=== PATIENT | female | born 1960 | race Caucasian/White ===

== ENCOUNTER 2019-01-22 09:44 | Inpatient (IN) ==
[2019-01-22 11:04] LABS: Basophils % 0.2 %; Eosinophils # 0.1 K/mcL (0.0-0.6); Eosinophils % 0.7 %; Hematocrit 25.1 % (35.3-44.9); Hemoglobin 7.6 g/dL (11.5-15.4); Immature Granulocytes % 1.2 % (0-4); Lymphocytes # 0.7 K/mcL (0.6-4.6); Lymphocytes % 3.8 %; Mean Corpuscular HGB Conc 30.3 g/dL (31.6-35.5); Mean Corpuscular Hemoglobin 26.8 pg (28.0-33.3); Mean Corpuscular Volume 88.4 fL (83.0-100.0); Mean Platelet Volume 10.1 fL (9.4-12.4); Monocytes % 5.9 %; Neutrophils # 15.3 K/mcL (1.6-8.9); Platelet Count 400 K/mcL (140-400); Red Blood Count 2.84 M/mcL (3.82-4.97); Red Cell Distribution Width 14.3 % (11.5-14.5); Segmented Neutrophils % 88.2 %; White Blood Count 17.4 K/mcL (4.3-11.1)
[2019-01-22] MEDS ORDERED: cefTRIAXone 1,000 MG in Water for inj. (sterile) 10 ML IVP ONE (11:25)
[2019-01-22 11:31] LABS: Alanine Aminotransferase 76 Units/L (7-52); Albumin/Globulin Ratio 0.8 (1.1-2.2); Alkaline Phosphatase 970 Units/L (34-104); Aspartate Amino Transferase 114 Units/L (13-39); BUN/Creatinine Ratio 13 (6-26); Bilirubin,Direct 0.2 mg/dL (0.0-0.2); Bilirubin,Indirect 0.3 mg/dL (0.0-1.2); Bilirubin,Total 0.5 mg/dL (0.3-1.0); Blood Urea Nitrogen 43 mg/dL (6-20); Calcium 8.9 mg/dL (8.6-10.3); Carbon Dioxide 15 mEq/L (23-29); Chloride 107 mEq/L (98-107); Globulin 3.7 g/dL (2.4-3.5); Glucose 139 mg/dL (70-105); Lipase 162 Units/L (11-82); Osmolality,Calculated 287 (280-300); Potassium 4.3 mEq/L (3.5-5.1); Sodium 132 mEq/L (136-145); Total Protein 6.7 g/dL (6.4-8.9); Troponin I < 0.03 ng/mL (< 0.04); eGFR For African Americans 17 (> 60); eGFR For Non-African Americans 14 (> 60)
[2019-01-22] MEDS ORDERED: 0.9 % Sodium Chloride 1,000 ML IVC ONE (11:35)
[2019-01-22 11:55] LABS: Bilirubin,Urine Negative (Negative); Blood,Urine Large (Negative); Clarity,Urine Turbid (Clear); Color,Urine Yellow (Yellow); Glucose,Urine (UA) Normal (Normal); Ketones,Urine Negative (Negative); Leukocyte Esterase,Urine Large (Negative); Nitrite,Urine Negative (Negative); PH,Urine 7.5 pH Units (5.0-8.0); Protein,Urine 100 mg/dL (Neg-Trace); Specific Gravity,Urine 1.011 (1.010-1.025); Urobilinogen,Urine Normal (Normal)
[2019-01-22 11:57] LABS: Bacteria,Urine Many per hpf (None-Few); Hyaline Casts,Urine None Seen per lpf (None-Few); Squamous Epithelial Cell,Urine Many per lpf (None-Few); WBC,Urine TNTC per hpf (0-3)
[2019-01-22 12:23] LABS: RBC,Urine TNTC per hpf (0-3)
[2019-01-22 12:45] LABS: INR 1.2; Prothrombin Time 13.1 Seconds (9.4-12.1)
[2019-01-22 12:48] LABS: Activated Partial Thrombo Time 38.7 Seconds (26.0-36.0)
[2019-01-22] MEDS ORDERED: Naloxone 0.4 MG/ML INJ IVP PRN (14:36)
[2019-01-22 16:39] LABS: Basophils % 0.2 %; Eosinophils # 0.1 K/mcL (0.0-0.6); Eosinophils % 0.2 %; Hematocrit 24.3 % (35.3-44.9); Hemoglobin 7.6 g/dL (11.5-15.4); Immature Granulocytes % 1.4 % (0-4); Lymphocytes # 1.6 K/mcL (0.6-4.6); Lymphocytes % 7.4 %; Mean Corpuscular HGB Conc 31.3 g/dL (31.6-35.5); Mean Corpuscular Hemoglobin 27.3 pg (28.0-33.3); Mean Corpuscular Volume 87.4 fL (83.0-100.0); Mean Platelet Volume 10.1 fL (9.4-12.4); Monocytes # 1.4 K/mcL (0.0-1.3); Monocytes % 6.4 %; Neutrophils # 17.8 K/mcL (1.6-8.9); Platelet Count 357 K/mcL (140-400); Red Blood Count 2.78 M/mcL (3.82-4.97); Red Cell Distribution Width 14.4 % (11.5-14.5); Segmented Neutrophils % 84.4 %; White Blood Count 21.1 K/mcL (4.3-11.1)
[2019-01-22] MEDS: Ringers Solution, Lactated 1,000 ML IVC SCH (17:00)
[2019-01-22] MEDS ORDERED: D5% in Water 1,000 ML IVC PRN (18:14)
[2019-01-22] MEDS ORDERED: Dextrose Gel 15 GM/37.5 ML TUBE PO PRN ×2 (18:14)
[2019-01-22] MEDS ORDERED: *HR* Dextrose 50 % in Water (Syg) 50 ML SYRINGE IVP PRN (18:14)
[2019-01-22] MEDS: Insulin LISPRO 300 UNITS/3 ML VIAL SQ SCH (21:59)
[2019-01-22] MEDS: lamoTRIgine 100 MG TABLET PO SCH (22:12)
[2019-01-23] MEDS: Ringers Solution, Lactated 1,000 ML IVC SCH ×2 (02:00→12:07)
[2019-01-23] MEDS: Insulin LISPRO 300 UNITS/3 ML VIAL SQ SCH ×4 (07:39→21:15)
[2019-01-23] MEDS: ARIPiprazole 10 MG TABLET PO SCH (08:36)
[2019-01-23] MEDS: Cyanocobalamin (B-12) 1,000 MCG TABLET PO SCH (08:42)
[2019-01-23] MEDS: cefTRIAXone 1,000 MG in Water for inj. (sterile) 10 ML IVP SCH (08:42)
[2019-01-23 10:05] LABS: Basophils % 0.3 %; Eosinophils # 0.3 K/mcL (0.0-0.6); Eosinophils % 1.6 %; Hematocrit 23.6 % (35.3-44.9); Immature Granulocytes % 1.2 % (0-4); Lymphocytes # 1.6 K/mcL (0.6-4.6); Lymphocytes % 10.5 %; Mean Corpuscular HGB Conc 29.7 g/dL (31.6-35.5); Mean Corpuscular Volume 91.1 fL (83.0-100.0); Mean Platelet Volume 10.4 fL (9.4-12.4); Monocytes # 0.8 K/mcL (0.0-1.3); Monocytes % 5.3 %; Neutrophils # 12.4 K/mcL (1.6-8.9); Platelet Count 392 K/mcL (140-400); Red Blood Count 2.59 M/mcL (3.82-4.97); Red Cell Distribution Width 14.4 % (11.5-14.5); Segmented Neutrophils % 81.1 %; White Blood Count 15.3 K/mcL (4.3-11.1)
[2019-01-23 10:38] LABS: Calcium 8.6 mg/dL (8.6-10.3); Potassium 4.1 mEq/L (3.5-5.1)
[2019-01-23 10:38] LABS: Calcium 8.7 mg/dL (8.6-10.3); Magnesium 1.8 mg/dL (1.6-2.6); Phosphorous 4.2 mg/dL (2.7-4.5); Potassium 4.2 mEq/L (3.5-5.1)
[2019-01-23 10:42] LABS: Albumin 2.9 g/dL (3.5-5.7); Albumin/Globulin Ratio 0.8 (1.1-2.2); Bilirubin,Indirect 0.3 mg/dL (0.0-1.2); Bilirubin,Total 0.3 mg/dL (0.3-1.0); Globulin 3.5 g/dL (2.4-3.5); Magnesium 1.7 mg/dL (1.6-2.6); Phosphorous 3.9 mg/dL (2.7-4.5); Total Protein 6.4 g/dL (6.4-8.9)
[2019-01-23 10:47] LABS: Albumin 2.8 g/dL (3.5-5.7); Albumin/Globulin Ratio 0.8 (1.1-2.2); Bilirubin,Direct 0.2 mg/dL (0.0-0.2); Bilirubin,Indirect 0.1 mg/dL (0.0-1.2); Bilirubin,Total 0.3 mg/dL (0.3-1.0); Globulin 3.3 g/dL (2.4-3.5); Total Protein 6.1 g/dL (6.4-8.9)
[2019-01-23 10:59] LABS: Hepatitis B Surface Antigen Nonreactive (Nonreactive)
[2019-01-23 11:29] LABS: Hepatitis B Core IgM Nonreactive (Nonreactive)
[2019-01-23 11:30] LABS: Hepatitis C Virus Antibody Nonreactive (Nonreactive)
[2019-01-23] MEDS ORDERED: 0.9 % Sodium Chloride 250 ML ONE (11:54)
[2019-01-23 12:56] LABS: Hepatitis A Antibody IgM Nonreactive (Nonreactive)
[2019-01-23] MEDS: lamoTRIgine 100 MG TABLET PO SCH (21:23)
[2019-01-23] MEDS: Nystatin POWDER 30 GM BOTTLE TP SCH (22:00)
[2019-01-24] MEDS: Ringers Solution, Lactated 1,000 ML IVC SCH (02:59)
[2019-01-24 03:54] LABS: Bilirubin,Urine Negative (Negative); Blood,Urine Large (Negative); Clarity,Urine Turbid (Clear); Color,Urine Yellow (Yellow); Glucose,Urine (UA) Normal (Normal); Ketones,Urine Negative (Negative); Leukocyte Esterase,Urine Large (Negative); Nitrite,Urine Negative (Negative); PH,Urine 6.5 pH Units (5.0-8.0); Protein,Urine 100 mg/dL (Neg-Trace); Specific Gravity,Urine 1.009 (1.010-1.025); Urobilinogen,Urine Normal (Normal)
[2019-01-24 03:56] LABS: Hyaline Casts,Urine None Seen per lpf (None-Few); Squamous Epithelial Cell,Urine Many per lpf (None-Few); WBC,Urine TNTC per hpf (0-3)
[2019-01-24 04:15] LABS: Bacteria,Urine Present per hpf (None-Few); RBC,Urine Present per hpf (0-3)
[2019-01-24 06:17] LABS: Calcium 8.8 mg/dL (8.6-10.3); Magnesium 1.8 mg/dL (1.6-2.6); Phosphorous 3.8 mg/dL (2.7-4.5); Potassium 4.2 mEq/L (3.5-5.1)
[2019-01-24 06:32] LABS: Basophils # 0.1 K/mcL (0.0-0.2); Basophils % 0.6 %; Eosinophils # 0.3 K/mcL (0.0-0.6); Eosinophils % 2.5 %; Hematocrit 28.1 % (35.3-44.9); Hemoglobin 8.5 g/dL (11.5-15.4); Immature Granulocytes % 2.4 % (0-4); Lymphocytes # 2.7 K/mcL (0.6-4.6); Lymphocytes % 22.4 %; Mean Corpuscular HGB Conc 30.2 g/dL (31.6-35.5); Mean Corpuscular Hemoglobin 27.6 pg (28.0-33.3); Mean Corpuscular Volume 91.2 fL (83.0-100.0); Mean Platelet Volume 10.5 fL (9.4-12.4); Monocytes # 0.7 K/mcL (0.0-1.3); Monocytes % 5.6 %; Neutrophils # 7.9 K/mcL (1.6-8.9); Platelet Count 319 K/mcL (140-400); Red Blood Count 3.08 M/mcL (3.82-4.97); Red Cell Distribution Width 14.6 % (11.5-14.5); Segmented Neutrophils % 66.5 %; White Blood Count 11.8 K/mcL (4.3-11.1)
[2019-01-24] MEDS: Insulin LISPRO 300 UNITS/3 ML VIAL SQ SCH ×4 (07:41→21:36)
[2019-01-24] MEDS: ARIPiprazole 10 MG TABLET PO SCH (08:23)
[2019-01-24] MEDS: cefTRIAXone 1,000 MG in Water for inj. (sterile) 10 ML IVP SCH (08:24)
[2019-01-24] MEDS: Cyanocobalamin (B-12) 1,000 MCG TABLET PO SCH (08:24)
[2019-01-24] MEDS: Nystatin POWDER 30 GM BOTTLE TP SCH ×3 (08:25→21:37)
[2019-01-24] MEDS ORDERED: Ringers Solution, Lactated 1,000 ML IVC SCH (15:30)
[2019-01-24] MEDS: lamoTRIgine 100 MG TABLET PO SCH (21:37)
[2019-01-24] MEDS: Ondansetron 4 MG/2 ML VIAL IVP PRN (21:38)
[2019-01-25 01:22] LABS: Hematocrit 24.2 % (35.3-44.9); Hemoglobin 7.5 g/dL (11.5-15.4); Mean Corpuscular Hemoglobin 27.9 pg (28.0-33.3); Red Blood Count 2.69 M/mcL (3.82-4.97); Red Cell Distribution Width 14.6 % (11.5-14.5); White Blood Count 9.8 K/mcL (4.3-11.1)
[2019-01-25 01:23] LABS: Basophils % 0.3 %; Eosinophils # 0.2 K/mcL (0.0-0.6); Eosinophils % 2.4 %; Immature Granulocytes % 2.6 % (0-4); Lymphocytes # 1.9 K/mcL (0.6-4.6); Mean Platelet Volume 10.6 fL (9.4-12.4); Monocytes # 0.6 K/mcL (0.0-1.3); Monocytes % 6.1 %; Neutrophils # 6.8 K/mcL (1.6-8.9); Platelet Count 320 K/mcL (140-400); Segmented Neutrophils % 69.6 %
[2019-01-25 01:31] LABS: Calcium 8.2 mg/dL (8.6-10.3); Magnesium 1.6 mg/dL (1.6-2.6); Phosphorous 3.7 mg/dL (2.7-4.5); Potassium 4.2 mEq/L (3.5-5.1); Uric Acid 7.1 mg/dL (2.3-7.6)
[2019-01-25] MEDS: Insulin LISPRO 300 UNITS/3 ML VIAL SQ SCH ×4 (08:13→21:46)
[2019-01-25] MEDS ORDERED: Ringers Solution, Lactated 1,000 ML IVC SCH (08:15)
[2019-01-25] MEDS: ARIPiprazole 10 MG TABLET PO SCH (08:18)
[2019-01-25] MEDS: Cyanocobalamin (B-12) 1,000 MCG TABLET PO SCH (08:19)
[2019-01-25] MEDS: cefTRIAXone 1,000 MG in Water for inj. (sterile) 10 ML IVP SCH (08:19)
[2019-01-25] MEDS: Nystatin POWDER 30 GM BOTTLE TP SCH ×3 (08:20→20:55)
[2019-01-25] MEDS: *HR* Heparin 5,000 UNIT/ML VIAL SQ SCH (18:47)
[2019-01-25] MEDS: Ondansetron 4 MG/2 ML VIAL IVP PRN (20:55)
[2019-01-25] MEDS: lamoTRIgine 100 MG TABLET PO SCH (21:48)
[2019-01-26] MEDS: *HR* Heparin 5,000 UNIT/ML VIAL SQ SCH (05:41)
[2019-01-26 06:40] LABS: Calcium 8.6 mg/dL (8.6-10.3); Magnesium 1.8 mg/dL (1.6-2.6); Phosphorous 3.8 mg/dL (2.7-4.5); Potassium 4.1 mEq/L (3.5-5.1)
[2019-01-26 07:16] VITALS: BP 124/60
[2019-01-26] MEDS: Insulin LISPRO 300 UNITS/3 ML VIAL SQ SCH ×2 (07:51→11:46)
[2019-01-26] MEDS: ARIPiprazole 10 MG TABLET PO SCH (08:32)
[2019-01-26] MEDS: Cyanocobalamin (B-12) 1,000 MCG TABLET PO SCH (08:32)
[2019-01-26] MEDS: Nystatin POWDER 30 GM BOTTLE TP SCH (08:33)
[2019-01-26] MEDS: cefTRIAXone 1,000 MG in Water for inj. (sterile) 10 ML IVP SCH (08:33)
== END 2019-01-26 13:36 | disposition home health service (06) | DRG 720 ==
LOC: 3BNU 09:44 → EMEROOARM 09:44 → 3BNU 15:52 → SUATTDRO 01-23 09:53
PROVIDERS: ADMIT Internal Medicine; ATTEND Internal Medicine

== ENCOUNTER 2021-09-04 15:09 | Inpatient (IN) ==
[2021-09-04] MEDS ORDERED: *HR* HYDROcodone/Acet 5/325 mg TABLET PO ONE (17:40)
[2021-09-04 17:50] LABS: Basophils # 0.1 K/mcL (0.0-0.2); Basophils % 0.6 %; Eosinophils # 0.2 K/mcL (0.0-0.6); Eosinophils % 1.5 %; Hematocrit 36.7 % (35.3-44.9); Hemoglobin 11.8 g/dL (11.5-15.4); Immature Granulocytes % 0.6 % (0-4); Lymphocytes # 1.5 K/mcL (0.6-4.6); Mean Corpuscular HGB Conc 32.2 g/dL (31.6-35.5); Mean Corpuscular Hemoglobin 28.2 pg (28.0-33.3); Mean Corpuscular Volume 87.6 fL (83.0-100.0); Mean Platelet Volume 11.1 fL (9.4-12.4); Monocytes # 1.1 K/mcL (0.0-1.3); Monocytes % 8.6 %; Neutrophils # 9.6 K/mcL (1.6-8.9); Platelet Count 230 K/mcL (140-400); Red Blood Count 4.19 M/mcL (3.82-4.97); Red Cell Distribution Width 12.4 % (11.5-14.5); Segmented Neutrophils % 76.7 %; White Blood Count 12.5 K/mcL (4.3-11.1)
[2021-09-04 18:13] LABS: Alanine Aminotransferase 11 Units/L (7-52); Albumin 3.9 g/dL (3.5-5.7); Albumin/Globulin Ratio 1.3 (1.1-2.2); Alkaline Phosphatase 97 Units/L (34-104); Aspartate Amino Transferase 13 Units/L (13-39); BUN/Creatinine Ratio 14 (6-26); Bilirubin,Total 0.5 mg/dL (0.3-1.0); Blood Urea Nitrogen 23 mg/dL (8-23); Calcium 9.2 mg/dL (8.6-10.3); Carbon Dioxide 27 mEq/L (23-29); Chloride 100 mEq/L (98-107); Globulin 3.1 g/dL (2.4-3.5); Glucose 200 mg/dL (70-105); Lipase 25 Units/L (11-82); Osmolality,Calculated 289 (280-300); Potassium 5.1 mEq/L (3.5-5.1); Sodium 135 mEq/L (136-145); eGFR For African Americans 39 (> 60); eGFR For Non-African Americans 32 (> 60)
[2021-09-04 18:14] LABS: Troponin I < 0.03 ng/mL (< 0.04)
[2021-09-04] MEDS ORDERED: methocarbamoL 500 MG TABLET PO ONE (18:20)
[2021-09-04] MEDS ORDERED: Gadolinium Contrast Agent (WT Based) IV PRN (21:02)
[2021-09-04] MEDS ORDERED: Melatonin 3 MG TABLET PO PRN (22:14)
[2021-09-04] MEDS ORDERED: Ondansetron 4 MG/2 ML VIAL IVP PRN (22:14)
[2021-09-04] MEDS ORDERED: Naloxone 0.4 MG/ML INJ IVP PRN (22:14)
[2021-09-04] MEDS ORDERED: Dextrose 4 GM Chewable Tablets PO PRN ×2 (23:53)
[2021-09-04] MEDS ORDERED: *HR* Dextrose 50 % in Water (Syg) 50 ML SYRINGE IVP PRN (23:53)
[2021-09-04] MEDS ORDERED: D5% in Water 1,000 ML IVC PRN (23:53)
[2021-09-05] MEDS ORDERED: *HR* Heparin 5,000 UNIT/ML VIAL IVP ONE (00:01)
[2021-09-05] MEDS ORDERED: *HR* Heparin 5,000 UNIT/ML VIAL IVP PRN ×2 (00:01)
[2021-09-05 00:34] LABS: Bacteria,Urine Few per hpf (None-Few); Bilirubin,Urine Negative (Negative); Blood,Urine Trace (Negative); Clarity,Urine Turbid (Clear); Color,Urine Yellow (Yellow); Glucose,Urine (UA) Normal (Normal); Ketones,Urine Negative (Negative); Leukocyte Esterase,Urine Large (Negative); Mucus,Urine Few per lpf (None-Few); Nitrite,Urine Positive (Negative); Protein,Urine 30 mg/dL (Neg-Trace); Specific Gravity,Urine 1.016 (1.010-1.025); Squamous Epithelial Cell,Urine Few per hpf (None-Few); Urobilinogen,Urine Normal (Normal); WBC,Urine TNTC per hpf (0-3)
[2021-09-05 02:08] LABS: Hematocrit 32.9 % (35.3-44.9); Hemoglobin 11.1 g/dL (11.5-15.4); Mean Corpuscular HGB Conc 33.7 g/dL (31.6-35.5); Mean Corpuscular Volume 85.9 fL (83.0-100.0); Mean Platelet Volume 11.5 fL (9.4-12.4); Platelet Count 218 K/mcL (140-400); Red Blood Count 3.83 M/mcL (3.82-4.97); Red Cell Distribution Width 12.4 % (11.5-14.5); White Blood Count 11.5 K/mcL (4.3-11.1)
[2021-09-05 02:16] LABS: Heparin anti-factor XA UFH < 0.04 IU/mL (0.30-0.70); INR 1.1; Prothrombin Time 11.8 Seconds (9.4-12.1)
[2021-09-05 02:18] LABS: Activated Partial Thrombo Time 34.3 Seconds (26.0-36.0)
[2021-09-05 02:23] LABS: Calcium 9.1 mg/dL (8.6-10.3); Potassium 5.2 mEq/L (3.5-5.1)
[2021-09-05 02:24] LABS: D-Dimer 702 ng/mLFEU (0-500)
[2021-09-05] MEDS: Heparin 25,000UNIT/250ML 1/2NS 25,000 UNIT/250 ML IV.SOLN IVC SCH (02:37)
[2021-09-05] MEDS: Insulin LISPRO 300 UNITS/3 ML VIAL SUBQ SCH ×3 (08:27→17:07)
[2021-09-05] MEDS ORDERED: *HR* LORazepam 1 MG TABLET PO ONE (09:30)
[2021-09-05] MEDS ORDERED: GADOBUTROL 30 MMOL/30 ML VIAL IVP ONE (10:25)
[2021-09-05] MEDS ORDERED: Perflutren Lipid Microsphere 1.3 ML in 0.9 % Sodium Chloride 8.7 ML IVP PRN (14:05)
[2021-09-05 17:17] LABS: Folate 10.5 ng/mL (3.0-16.0)
[2021-09-05] MEDS: Acetaminophen 325 MG TABLET PO PRN (18:23)
[2021-09-06 01:52] LABS: Basophils % 0.5 %; Eosinophils # 0.1 K/mcL (0.0-0.6); Eosinophils % 1.4 %; Hematocrit 33.5 % (35.3-44.9); Hemoglobin 10.9 g/dL (11.5-15.4); Immature Granulocytes % 1.5 % (0-4); Lymphocytes # 1.6 K/mcL (0.6-4.6); Lymphocytes % 20.1 %; Mean Corpuscular HGB Conc 32.5 g/dL (31.6-35.5); Mean Corpuscular Hemoglobin 28.4 pg (28.0-33.3); Mean Corpuscular Volume 87.2 fL (83.0-100.0); Mean Platelet Volume 11.2 fL (9.4-12.4); Monocytes # 0.7 K/mcL (0.0-1.3); Monocytes % 8.3 %; Neutrophils # 5.4 K/mcL (1.6-8.9); Platelet Count 205 K/mcL (140-400); Red Blood Count 3.84 M/mcL (3.82-4.97); Red Cell Distribution Width 12.5 % (11.5-14.5); Segmented Neutrophils % 68.2 %; White Blood Count 7.9 K/mcL (4.3-11.1)
[2021-09-06 02:09] LABS: Calcium 9.3 mg/dL (8.6-10.3); Potassium 4.2 mEq/L (3.5-5.1)
[2021-09-06] MEDS: Heparin 25,000UNIT/250ML 1/2NS 25,000 UNIT/250 ML IV.SOLN IVC SCH ×2 (02:30→10:55)
[2021-09-06 06:32] LABS: Magnesium 2.1 mg/dL (1.6-2.6)
[2021-09-06] MEDS: Insulin LISPRO 300 UNITS/3 ML VIAL SUBQ SCH ×3 (08:58→17:08)
[2021-09-06] MEDS: 0.9 % Sodium Chloride 1,000 ML IVC SCH (11:02)
[2021-09-06] MEDS ORDERED: Famotidine 20 MG TABLET PO PRN (11:29)
[2021-09-06] MEDS: Gabapentin 400 MG CAPSULE PO SCH ×2 (15:16→20:58)
[2021-09-06] MEDS: hydrOXYzine pamoate 25 MG CAPSULE PO SCH ×2 (15:16→20:58)
[2021-09-06] MEDS: *HR* Heparin 5,000 UNIT/ML VIAL SQ SCH (17:05)
[2021-09-06] MEDS: Loratadine 10 MG TABLET PO SCH (20:58)
[2021-09-07] MEDS: 0.9 % Sodium Chloride 1,000 ML IVC SCH (01:24)
[2021-09-07 04:22] LABS: Hematocrit 29.4 % (35.3-44.9); Hemoglobin 9.7 g/dL (11.5-15.4); Mean Corpuscular Hemoglobin 28.1 pg (28.0-33.3); Mean Corpuscular Volume 85.2 fL (83.0-100.0); Platelet Count 185 K/mcL (140-400); Red Blood Count 3.45 M/mcL (3.82-4.97); Red Cell Distribution Width 12.6 % (11.5-14.5); White Blood Count 6.5 K/mcL (4.3-11.1)
[2021-09-07 04:36] LABS: Calcium 9.2 mg/dL (8.6-10.3); Potassium 4.6 mEq/L (3.5-5.1)
[2021-09-07] MEDS: *HR* Heparin 5,000 UNIT/ML VIAL SQ SCH ×2 (06:28→17:17)
[2021-09-07] MEDS: Cholecalciferol (D-3) 1,000 UNIT (25MCG) TABLET PO SCH (07:58)
[2021-09-07] MEDS: FLUoxetine 20 MG CAPSULE PO SCH (07:58)
[2021-09-07] MEDS: Gabapentin 400 MG CAPSULE PO SCH ×3 (07:58→19:47)
[2021-09-07] MEDS: hydrOXYzine pamoate 25 MG CAPSULE PO SCH ×3 (07:59→19:44)
[2021-09-07] MEDS: polyethylene glycoL 3350 17 GM POWD.PACK PO SCH (07:59)
[2021-09-07] MEDS: calcitrioL 0.25 MCG CAPSULE PO SCH (07:59)
[2021-09-07] MEDS: Insulin LISPRO 300 UNITS/3 ML VIAL SUBQ SCH ×3 (07:59→17:16)
[2021-09-07] MEDS: Cyanocobalamin (B-12) 1,000 MCG/ML VIAL SQ SCH (12:07)
[2021-09-07] MEDS: Loratadine 10 MG TABLET PO SCH (19:44)
[2021-09-08] MEDS: *HR* Heparin 5,000 UNIT/ML VIAL SQ SCH ×2 (05:38→17:26)
[2021-09-08] MEDS: Cyanocobalamin (B-12) 1,000 MCG/ML VIAL SQ SCH (08:40)
[2021-09-08] MEDS: hydrOXYzine pamoate 25 MG CAPSULE PO SCH ×3 (08:41→19:20)
[2021-09-08] MEDS: calcitrioL 0.25 MCG CAPSULE PO SCH (08:41)
[2021-09-08] MEDS: FLUoxetine 20 MG CAPSULE PO SCH (08:41)
[2021-09-08] MEDS: Cholecalciferol (D-3) 1,000 UNIT (25MCG) TABLET PO SCH (08:41)
[2021-09-08] MEDS: Gabapentin 400 MG CAPSULE PO SCH ×3 (08:41→19:20)
[2021-09-08] MEDS: Insulin LISPRO 300 UNITS/3 ML VIAL SUBQ SCH ×3 (08:42→17:24)
[2021-09-08] MEDS: polyethylene glycoL 3350 17 GM POWD.PACK PO SCH (08:45)
[2021-09-08 14:36] LABS: Hematocrit 28.4 % (35.3-44.9); Hemoglobin 9.4 g/dL (11.5-15.4); Mean Corpuscular HGB Conc 33.1 g/dL (31.6-35.5); Mean Corpuscular Hemoglobin 28.8 pg (28.0-33.3); Mean Corpuscular Volume 87.1 fL (83.0-100.0); Mean Platelet Volume 10.8 fL (9.4-12.4); Platelet Count 205 K/mcL (140-400); Red Blood Count 3.26 M/mcL (3.82-4.97); Red Cell Distribution Width 12.6 % (11.5-14.5); White Blood Count 6.3 K/mcL (4.3-11.1)
[2021-09-08 14:56] LABS: Calcium 8.8 mg/dL (8.6-10.3); Potassium 4.6 mEq/L (3.5-5.1)
[2021-09-08] MEDS: Loratadine 10 MG TABLET PO SCH (19:20)
[2021-09-09] MEDS: *HR* Heparin 5,000 UNIT/ML VIAL SQ SCH ×2 (05:03→17:07)
[2021-09-09] MEDS: Gabapentin 400 MG CAPSULE PO SCH ×3 (07:55→20:07)
[2021-09-09] MEDS: Cholecalciferol (D-3) 1,000 UNIT (25MCG) TABLET PO SCH (07:55)
[2021-09-09] MEDS: Cyanocobalamin (B-12) 1,000 MCG/ML VIAL SQ SCH (07:55)
[2021-09-09] MEDS: Insulin LISPRO 300 UNITS/3 ML VIAL SUBQ SCH ×3 (07:55→17:08)
[2021-09-09] MEDS: calcitrioL 0.25 MCG CAPSULE PO SCH (07:56)
[2021-09-09] MEDS: polyethylene glycoL 3350 17 GM POWD.PACK PO SCH ×2 (07:57→11:54)
[2021-09-09] MEDS: FLUoxetine 20 MG CAPSULE PO SCH (07:59)
[2021-09-09] MEDS: hydrOXYzine pamoate 25 MG CAPSULE PO SCH ×3 (07:59→20:07)
[2021-09-09] MEDS: Cefdinir 300 MG CAPSULE PO SCH ×2 (11:58→20:07)
[2021-09-09] MEDS: Acetaminophen 325 MG TABLET PO PRN (20:06)
[2021-09-09] MEDS: Loratadine 10 MG TABLET PO SCH (20:07)
[2021-09-09] MEDS ORDERED: Sennosides/Docusate Sodium TABLET PO SCH (21:00)
[2021-09-10 03:43] VITALS: O2SAT 99
[2021-09-10] MEDS: *HR* Heparin 5,000 UNIT/ML VIAL SQ SCH (06:16)
[2021-09-10] MEDS: Cholecalciferol (D-3) 1,000 UNIT (25MCG) TABLET PO SCH (08:00)
[2021-09-10] MEDS: FLUoxetine 20 MG CAPSULE PO SCH (08:01)
[2021-09-10] MEDS: hydrOXYzine pamoate 25 MG CAPSULE PO SCH ×2 (08:01→14:34)
[2021-09-10] MEDS: Gabapentin 400 MG CAPSULE PO SCH ×2 (08:01→14:34)
[2021-09-10] MEDS: calcitrioL 0.25 MCG CAPSULE PO SCH (08:02)
[2021-09-10] MEDS: Cefdinir 300 MG CAPSULE PO SCH (08:02)
[2021-09-10] MEDS: Cyanocobalamin (B-12) 1,000 MCG/ML VIAL SQ SCH (08:04)
[2021-09-10] MEDS: polyethylene glycoL 3350 17 GM POWD.PACK PO SCH (08:05)
[2021-09-10] MEDS: Insulin LISPRO 300 UNITS/3 ML VIAL SUBQ SCH ×2 (08:07→11:53)
[2021-09-10 08:28] LABS: Magnesium 1.9 mg/dL (1.6-2.6); Phosphorous 5.9 mg/dL (2.7-4.5)
[2021-09-10 08:29] LABS: Calcium 9.1 mg/dL (8.6-10.3); Potassium 4.4 mEq/L (3.5-5.1)
[2021-09-10 10:50] VITALS: BP 136/76; PULSE 86; TEMP 98.1
== END 2021-09-10 17:00 | DRG 347 ==
LOC: EMEROOARM 15:09 → 4WAOSI 15:09 → SUATTDRO 09-06 14:23
PROVIDERS: ADMIT Student in an Organized Health Care Education/Training Program; ATTEND Internal Medicine

== ENCOUNTER 2022-01-23 01:25 | Inpatient (IN) ==
[2022-01-23] MEDS ORDERED: Albuterol 2.5 MG/3 ML NEBULIZER IH ONE ×2 (02:16→05:11)
[2022-01-23 02:30] LABS: Amorphous Sediment,Urine Few per hpf (None-Few); Bacteria,Urine Few per hpf (None-Few); Bilirubin,Urine Negative (Negative); Blood,Urine Small (Negative); Clarity,Urine Ex.Turbid (Clear); Color,Urine Yellow (Yellow); Glucose,Urine (UA) Normal (Normal); Ketones,Urine Negative (Negative); Leukocyte Esterase,Urine Large (Negative); Mucus,Urine Few per lpf (None-Few); Nitrite,Urine Positive (Negative); Protein,Urine 70 mg/dL (Neg-Trace); RBC,Urine 15-30 per hpf (0-3); Specific Gravity,Urine 1.021 (1.010-1.025); Squamous Epithelial Cell,Urine Many per hpf (None-Few); Transitional Epi Cells,Urine Few per hpf (None-Few); WBC,Urine TNTC per hpf (0-3)
[2022-01-23 02:44] LABS: Basophils % 0.2 %; Eosinophils # 0.1 K/mcL (0.0-0.6); Eosinophils % 0.5 %; Hematocrit 33.3 % (35.3-44.9); Hemoglobin 10.8 g/dL (11.5-15.4); Immature Granulocytes % 1.2 % (0-4); Lymphocytes # 0.8 K/mcL (0.6-4.6); Lymphocytes % 4.4 %; Mean Corpuscular HGB Conc 32.4 g/dL (31.6-35.5); Mean Corpuscular Hemoglobin 27.6 pg (28.0-33.3); Mean Corpuscular Volume 85.2 fL (83.0-100.0); Mean Platelet Volume 10.8 fL (9.4-12.4); Monocytes # 1.1 K/mcL (0.0-1.3); Neutrophils # 16.6 K/mcL (1.6-8.9); Platelet Count 315 K/mcL (140-400); Red Blood Count 3.91 M/mcL (3.82-4.97); Red Cell Distribution Width 12.4 % (11.5-14.5); Segmented Neutrophils % 87.7 %; White Blood Count 18.9 K/mcL (4.3-11.1)
[2022-01-23 02:48] LABS: INR 1.1; Prothrombin Time 11.8 Seconds (9.4-12.1)
[2022-01-23 02:58] LABS: Influenza A PCR Negative (Negative); Influenza B PCR Negative (Negative); Resp. Syncytial Virus PCR Negative (Negative); SARS-CoV-2 by PCR (In House) Negative (Negative)
[2022-01-23 03:00] LABS: Albumin 3.9 g/dL (3.5-5.7); Albumin/Globulin Ratio 1.1 (1.1-2.2); Bilirubin,Direct 0.1 mg/dL (0.0-0.2); Bilirubin,Indirect 0.3 mg/dL (0.0-1.0); Bilirubin,Total 0.4 mg/dL (0.3-1.0); Calcium 8.8 mg/dL (8.6-10.3); Globulin 3.5 g/dL (2.4-3.5); Potassium 5.4 mEq/L (3.5-5.1); Total Protein 7.4 g/dL (6.4-8.9)
[2022-01-23 03:41] LABS: ABG Base Excess -1 mEq/L (-2 to 3); ABG HCO3 24 mEq/L (21-27); ABG Oxygen Saturation 97 % (95-98); ABG PCO2 40 mmHg (35-45); ABG PH 7.38 pH Units (7.32-7.45); ABG PO2 97 mmHg (85-104); ABG TCO2 25 mEq/L (20-26)
[2022-01-23] MEDS ORDERED: cefTRIAXone 2,000 MG in 0.9 % Sodium Chloride Mini Bag 100 ML IVPB ONE (03:56)
[2022-01-23] MEDS ORDERED: 0.9 % Sodium Chloride 1,000 ML IV ONE (04:32)
[2022-01-23] MEDS ORDERED: 0.9 % Sodium Chloride 500 ML IV ONE (05:10)
[2022-01-23] MEDS ORDERED: Calcium Gluconate 1gm/50mL 1 GM/50 ML BAG IVPB ONE (05:11)
[2022-01-23] MEDS ORDERED: Morphine Sulfate 2 MG/ML SYRINGE IVP ONE (07:22)
[2022-01-23] MEDS ORDERED: *HR* HYDROmorphone (PF) 1 MG/ML SYRINGE IVP ONE (07:37)
[2022-01-23 07:42] LABS: Calcium 8.5 mg/dL (8.6-10.3); Potassium 6.5 mEq/L (3.5-5.1)
[2022-01-23] MEDS ORDERED: Insulin Regular, Human 100 UNIT/ML IV ONE (08:20)
[2022-01-23] MEDS ORDERED: *HR* Dextrose 50 % in Water (Syg) 50 ML SYRINGE IVP ONE (08:24)
[2022-01-23] MEDS ORDERED: Naloxone 0.4 MG/ML INJ IVP PRN (08:51)
[2022-01-23] MEDS ORDERED: 0.9 % Sodium Chloride 1,000 ML IVC SCH (09:00)
[2022-01-23] MEDS ORDERED: Ondansetron 4 MG/2 ML VIAL IVP PRN (09:48)
[2022-01-23] MEDS: *HR* OxyCODONE/APAP 10/325 TABLET PO PRN ×2 (12:46→19:59)
[2022-01-23] MEDS: *HR* Heparin 5,000 UNIT/ML VIAL SQ SCH ×2 (19:09→23:58)
[2022-01-23] MEDS ORDERED: Dextrose Gel 15 GM/37.5 ML TUBE PO PRN ×2 (21:29)
[2022-01-23] MEDS ORDERED: D5% in Water 1,000 ML IVC PRN (21:29)
[2022-01-23] MEDS ORDERED: *HR* Dextrose 50 % in Water (Syg) 50 ML SYRINGE IVP PRN (21:29)
[2022-01-23] MEDS: Insulin LISPRO 300 UNITS/3 ML VIAL SUBQ SCH (21:47)
[2022-01-24] MEDS: *HR* OxyCODONE/APAP 10/325 TABLET PO PRN ×4 (03:07→23:49)
[2022-01-24] MEDS ORDERED: Methyl Salicylate/Menthol 85 APPL/85 GM TUBE TP PRN (08:17)
[2022-01-24] MEDS ORDERED: GuaiFENesin Liq 200 MG/10 ML UDC PO PRN (08:17)
[2022-01-24] MEDS ORDERED: Artificial Tears SOLN 15 ML BOTTLE BOTH EYES PRN (08:17)
[2022-01-24] MEDS ORDERED: Famotidine 20 MG TABLET PO PRN (08:17)
[2022-01-24] MEDS: cefTRIAXone 2,000 MG in 0.9 % Sodium Chloride 20 ML IVP SCH (08:30)
[2022-01-24] MEDS: *HR* Heparin 5,000 UNIT/ML VIAL SQ SCH ×3 (08:30→23:49)
[2022-01-24] MEDS: Insulin LISPRO 300 UNITS/3 ML VIAL SUBQ SCH ×4 (08:31→19:49)
[2022-01-24] MEDS ORDERED: Loratadine 10 MG TABLET PO SCH (09:00)
[2022-01-24] MEDS ORDERED: CRANBERRY FRUIT 450 MG PO SCH (09:00)
[2022-01-24] MEDS ORDERED: AZELASTINE HCL OP SCH (09:00)
[2022-01-24 10:09] LABS: Basophils % 0.1 %; Eosinophils # 0.3 K/mcL (0.0-0.6); Eosinophils % 2.9 %; Hematocrit 29.6 % (35.3-44.9); Hemoglobin 9.7 g/dL (11.5-15.4); Immature Granulocytes % 0.9 % (0-4); Lymphocytes # 1.2 K/mcL (0.6-4.6); Lymphocytes % 12.4 %; Mean Corpuscular HGB Conc 32.8 g/dL (31.6-35.5); Mean Corpuscular Hemoglobin 28.1 pg (28.0-33.3); Mean Corpuscular Volume 85.8 fL (83.0-100.0); Monocytes # 0.7 K/mcL (0.0-1.3); Monocytes % 7.5 %; Neutrophils # 7.5 K/mcL (1.6-8.9); Platelet Count 244 K/mcL (140-400); Red Blood Count 3.45 M/mcL (3.82-4.97); Red Cell Distribution Width 12.8 % (11.5-14.5); Segmented Neutrophils % 76.2 %; White Blood Count 9.8 K/mcL (4.3-11.1)
[2022-01-24] MEDS: FLUoxetine 20 MG CAPSULE PO SCH (10:09)
[2022-01-24] MEDS: polyethylene glycoL 3350 17 GM POWD.PACK PO SCH (10:09)
[2022-01-24] MEDS: Prenatal Vit/FA 1 EACH TABLET PO SCH (10:09)
[2022-01-24] MEDS: Lactobacillus 1 EACH CAP.SPRINK PO SCH (10:09)
[2022-01-24] MEDS: Sennosides/Docusate Sodium TABLET PO SCH ×2 (10:09→19:50)
[2022-01-24] MEDS: Cholecalciferol (D-3) 1,000 UNIT (25MCG) TABLET PO SCH (10:09)
[2022-01-24] MEDS: Gabapentin 400 MG CAPSULE PO SCH ×3 (10:09→19:51)
[2022-01-24] MEDS: calcitrioL 0.25 MCG CAPSULE PO SCH (10:09)
[2022-01-24] MEDS: *HR* SitaGLIPtin 25 MG TABLET PO SCH (10:09)
[2022-01-24] MEDS: Insulin DETEMIR 100 UNIT/ML X5UNITS SUBQ SCH (10:13)
[2022-01-24] MEDS: Nystatin POWDER 30 GM BOTTLE TP SCH ×2 (10:13→19:51)
[2022-01-24] MEDS ORDERED: Insulin LISPRO 300 UNITS/3 ML VIAL SUBQ SCH (11:30)
[2022-01-24 11:36] LABS: Calcium 8.5 mg/dL (8.6-10.3); Potassium 4.5 mEq/L (3.5-5.1)
[2022-01-24 11:59] LABS: Calcium 8.8 mg/dL (8.6-10.3); Potassium 4.7 mEq/L (3.5-5.1)
[2022-01-24] MEDS: Lipase (12,000 UN)/Protease (38,000 UN)/Amylase (60,000 UN) 1 EACH CAP.DR PO SCH ×2 (12:39→16:21)
[2022-01-24 13:58] LABS: Hepatitis B Surface Antigen Nonreactive (Nonreactive)
[2022-01-24 14:27] LABS: Hepatitis B Core IgM Nonreactive (Nonreactive)
[2022-01-24 14:30] LABS: Hepatitis C Virus Antibody Nonreactive (Nonreactive)
[2022-01-24 14:33] LABS: Hepatitis A Antibody IgM Nonreactive (Nonreactive)
[2022-01-24] MEDS: Loratadine 10 MG TABLET PO SCH (19:51)
[2022-01-24] MEDS: Melatonin 3 MG TABLET PO SCH (19:51)
[2022-01-24] MEDS ORDERED: Acetaminophen 325 MG TABLET PO PRN (21:13)
[2022-01-25 03:16] LABS: Basophils % 0.1 %; Eosinophils # 0.3 K/mcL (0.0-0.6); Eosinophils % 3.3 %; Hematocrit 29.5 % (35.3-44.9); Hemoglobin 9.5 g/dL (11.5-15.4); Immature Granulocytes % 0.7 % (0-4); Lymphocytes # 1.5 K/mcL (0.6-4.6); Lymphocytes % 17.9 %; Mean Corpuscular HGB Conc 32.2 g/dL (31.6-35.5); Mean Corpuscular Hemoglobin 28.4 pg (28.0-33.3); Mean Corpuscular Volume 88.1 fL (83.0-100.0); Mean Platelet Volume 10.9 fL (9.4-12.4); Monocytes # 0.6 K/mcL (0.0-1.3); Neutrophils # 5.9 K/mcL (1.6-8.9); Platelet Count 244 K/mcL (140-400); Red Blood Count 3.35 M/mcL (3.82-4.97); Red Cell Distribution Width 12.8 % (11.5-14.5); White Blood Count 8.4 K/mcL (4.3-11.1)
[2022-01-25 03:58] LABS: Albumin 3.5 g/dL (3.5-5.7); Albumin/Globulin Ratio 1.1 (1.1-2.2); Bilirubin,Direct 0.2 mg/dL (0.0-0.2); Bilirubin,Indirect 0.2 mg/dL (0.0-1.0); Bilirubin,Total 0.4 mg/dL (0.3-1.0); Calcium 8.6 mg/dL (8.6-10.3); Globulin 3.1 g/dL (2.4-3.5); Potassium 4.8 mEq/L (3.5-5.1); Total Protein 6.6 g/dL (6.4-8.9)
[2022-01-25] MEDS: *HR* OxyCODONE/APAP 10/325 TABLET PO PRN ×3 (05:26→21:14)
[2022-01-25] MEDS: FLUoxetine 20 MG CAPSULE PO SCH (07:47)
[2022-01-25] MEDS: Sennosides/Docusate Sodium TABLET PO SCH ×2 (07:47→21:14)
[2022-01-25] MEDS: Cholecalciferol (D-3) 1,000 UNIT (25MCG) TABLET PO SCH (07:47)
[2022-01-25] MEDS: Lipase (12,000 UN)/Protease (38,000 UN)/Amylase (60,000 UN) 1 EACH CAP.DR PO SCH ×3 (07:47→17:48)
[2022-01-25] MEDS: Prenatal Vit/FA 1 EACH TABLET PO SCH (07:47)
[2022-01-25] MEDS: Lactobacillus 1 EACH CAP.SPRINK PO SCH (07:47)
[2022-01-25] MEDS: *HR* SitaGLIPtin 25 MG TABLET PO SCH (07:47)
[2022-01-25] MEDS: Gabapentin 400 MG CAPSULE PO SCH ×3 (07:47→21:15)
[2022-01-25] MEDS: calcitrioL 0.25 MCG CAPSULE PO SCH (07:47)
[2022-01-25] MEDS: polyethylene glycoL 3350 17 GM POWD.PACK PO SCH (07:48)
[2022-01-25] MEDS: cefTRIAXone 2,000 MG in 0.9 % Sodium Chloride 20 ML IVP SCH (07:48)
[2022-01-25] MEDS: Nystatin POWDER 30 GM BOTTLE TP SCH ×2 (07:48→21:17)
[2022-01-25] MEDS: Insulin DETEMIR 100 UNIT/ML X5UNITS SUBQ SCH (07:50)
[2022-01-25] MEDS: *HR* Heparin 5,000 UNIT/ML VIAL SQ SCH ×2 (07:50→16:04)
[2022-01-25] MEDS: Insulin LISPRO 300 UNITS/3 ML VIAL SUBQ SCH ×4 (07:50→21:15)
[2022-01-25] MEDS: Melatonin 3 MG TABLET PO SCH (21:15)
[2022-01-25] MEDS: Loratadine 10 MG TABLET PO SCH (21:15)
[2022-01-26] MEDS: *HR* Heparin 5,000 UNIT/ML VIAL SQ SCH ×3 (00:48→16:25)
[2022-01-26 03:51] VITALS: TEMP 98
[2022-01-26] MEDS: cefTRIAXone 2,000 MG in 0.9 % Sodium Chloride 20 ML IVP SCH (08:49)
[2022-01-26 09:20] LABS: Basophils % 0.1 %; Eosinophils # 0.2 K/mcL (0.0-0.6); Eosinophils % 3.4 %; Hematocrit 28.3 % (35.3-44.9); Hemoglobin 9.2 g/dL (11.5-15.4); Immature Granulocytes % 0.9 % (0-4); Lymphocytes # 1.4 K/mcL (0.6-4.6); Lymphocytes % 20.2 %; Mean Corpuscular HGB Conc 32.5 g/dL (31.6-35.5); Mean Corpuscular Hemoglobin 28.2 pg (28.0-33.3); Mean Corpuscular Volume 86.8 fL (83.0-100.0); Mean Platelet Volume 11.3 fL (9.4-12.4); Monocytes # 0.6 K/mcL (0.0-1.3); Monocytes % 8.6 %; Neutrophils # 4.5 K/mcL (1.6-8.9); Platelet Count 231 K/mcL (140-400); Red Blood Count 3.26 M/mcL (3.82-4.97); Red Cell Distribution Width 12.8 % (11.5-14.5); Segmented Neutrophils % 66.8 %; White Blood Count 6.7 K/mcL (4.3-11.1)
[2022-01-26] MEDS: Gabapentin 400 MG CAPSULE PO SCH ×3 (09:31→19:54)
[2022-01-26] MEDS: Lipase (12,000 UN)/Protease (38,000 UN)/Amylase (60,000 UN) 1 EACH CAP.DR PO SCH ×3 (09:31→19:45)
[2022-01-26] MEDS: calcitrioL 0.25 MCG CAPSULE PO SCH (09:31)
[2022-01-26] MEDS: Sennosides/Docusate Sodium TABLET PO SCH ×2 (09:31→19:54)
[2022-01-26] MEDS: FLUoxetine 20 MG CAPSULE PO SCH (09:31)
[2022-01-26] MEDS: *HR* SitaGLIPtin 25 MG TABLET PO SCH (09:32)
[2022-01-26] MEDS: Cholecalciferol (D-3) 1,000 UNIT (25MCG) TABLET PO SCH (09:32)
[2022-01-26] MEDS: polyethylene glycoL 3350 17 GM POWD.PACK PO SCH (09:32)
[2022-01-26] MEDS: Lactobacillus 1 EACH CAP.SPRINK PO SCH (09:32)
[2022-01-26] MEDS: Nystatin POWDER 30 GM BOTTLE TP SCH (09:36)
[2022-01-26 09:37] LABS: Albumin 3.2 g/dL (3.5-5.7); Albumin/Globulin Ratio 0.9 (1.1-2.2); Bilirubin,Total 0.4 mg/dL (0.3-1.0); Calcium 8.6 mg/dL (8.6-10.3); Globulin 3.4 g/dL (2.4-3.5); Potassium 4.3 mEq/L (3.5-5.1); Total Protein 6.6 g/dL (6.4-8.9)
[2022-01-26] MEDS: Prenatal Vit/FA 1 EACH TABLET PO SCH (09:38)
[2022-01-26] MEDS: Insulin LISPRO 300 UNITS/3 ML VIAL SUBQ SCH ×3 (09:38→16:10)
[2022-01-26] MEDS: Insulin DETEMIR 100 UNIT/ML X5UNITS SUBQ SCH (09:39)
[2022-01-26 14:43] LABS: Influenza A PCR Negative (Negative); Influenza B PCR Negative (Negative); Resp. Syncytial Virus PCR Negative (Negative); SARS-CoV-2 by PCR (In House) Negative (Negative)
[2022-01-26] MEDS: *HR* OxyCODONE/APAP 10/325 TABLET PO PRN (16:16)
[2022-01-26 17:09] VITALS: BP 152/82; PULSE 85; O2SAT 97
[2022-01-26] MEDS ORDERED: Pfizer Covid-19 Vaccine 30MCG/0.3ML IM ONE (17:15)
[2022-01-26] MEDS: Melatonin 3 MG TABLET PO SCH (19:54)
[2022-01-26] MEDS: Loratadine 10 MG TABLET PO SCH (19:54)
== END 2022-01-26 21:56 | DRG 466 ==
LOC: EMEROOARM 01:25 → SUATTDRO 12:48 → 2NENU 12:48
PROVIDERS: ADMIT Internal Medicine; ATTEND Internal Medicine